=== PATIENT | female | born 1980 | race Caucasian/White ===

== ENCOUNTER 2022-09-07 09:39 | Emergency (ER) | payer MEDICAID ==
[~2022-09-07] VITALS: Wt 88.5 kg
[2022-09-07 10:24] LABS: BASO % 0.4 % (0.0-1.0); EOS % 0.2 % (1.0-4.0); HEMATOCRIT 36.9 % (37.0-47.0); LYMPH # 1.7 10*3/uL (1.3-4.4); LYMPH % 34.4 % (27.0-41.0); MEAN CORPUSCULAR HGB 28.9 pg (27.0-31.0); MEAN CORPUSCULAR HGB CONC 33.6 g/dl (33.0-37.0); MEAN PLATELET VOLUME 11.4 fl (9.6-12.3); MONO # 0.4 10*3/uL (0.1-1.0); MONO % 7.7 % (3.0-9.0); NEUT # 2.8 10*3/uL (2.3-7.9); NEUT % 57.1 % (47.0-73.0); PLATELET COUNT AUTOMATED 242 10*3/uL (130-400); RED BLOOD COUNT 4.29 10*6/uL (4.10-5.10); RED CELL DISTRI WIDTH 12.7 % (0-14.5); WHITE BLOOD COUNT 4.9 10*3/uL (4.8-10.8)
[2022-09-07 10:36] LABS: ACT PARTIAL THROMBO TIME 28.2 SECONDS (20.0-32.1)
[2022-09-07 10:49] LABS: LIPASE 38 U/L (12-53)
[2022-09-07 10:51] LABS: ALKALINE PHOSPHATASE 78 U/L (46-116); BUN 9 mg/dl (9-23); CHLORIDE 105 mmol/L (98-107); SGPT/ALT 22 U/L (10-49); TOTAL PROTEIN 7.3 gm/dL (6.0-8.0)
[2022-09-07 10:53] LABS: BETA-HCG, QUANT < 3.0 mIU/mL (3-10)
[2022-09-07] MEDS ORDERED: Motrin,Rufen800 MG PO (13:11)
== END 2022-09-07 13:46 | disposition home or self-care (01) ==
LOC: ED 09:39
PROVIDERS: Emergency Medicine
DX: R09.1 Pleurisy (principal)

== ENCOUNTER 2022-11-21 10:21 | Emergency (ER) | payer MEDICAID ==
[~2022-11-21] VITALS: Wt 95.3 kg
[~2022-11-21 10:21] MED LIST: Motrin,Rufen800 MG PO
[2022-11-21 11:12] LABS: BILIRUBIN Negative (Negative); BLOOD 1+ (Negative); CLARITY Clear (Clear); COLOR Yellow (Yellow); GLUCOSE Negative (Negative); KETONE Negative (Negative); LEUKO ESTERASE Negative (Negative); NITRITE Negative (Negative); UROBILINOGEN 0.2 E.U./dl (0.0-1.0)
[2022-11-21 11:19] LABS: BACTERIA 1+
[2022-11-21] MEDS ORDERED: CIPRO500 MG PO (11:45)
[2022-11-21] MEDS ORDERED: PHENERGAN25 M3 PO (11:45)
== END 2022-11-21 11:58 | disposition home or self-care (01) ==
LOC: ED 10:21
PROVIDERS: Emergency Medicine
DX: N39.0 Urinary tract infection, site not specified (principal); R11.0 Nausea; M79.7 Fibromyalgia; Z90.89 Acquired absence of other organs; Z90.49 Acquired absence of other specified parts of digestive tract; Z98.51 Tubal ligation status; Z98.890 Other specified postprocedural states

== ENCOUNTER → 2023-09-10 | Outpatient (CLI) | payer MEDICAID ==
[~2023-09-10] MED LIST changes: +CIPRO500 MG PO; +PHENERGAN25 M3 PO
== END | disposition home or self-care (01) ==
LOC: MRI 12:35
PROVIDERS: ATTEND Internal Medicine
DX: R01.1 Cardiac murmur, unspecified (principal); M54.2 Cervicalgia; M43.22 Fusion of spine, cervical region

== ENCOUNTER 2025-03-27 13:35 | Emergency (ER) | payer OTHER ==
[~2025-03-27] VITALS: Wt 86.2 kg
[2025-03-27] MEDS ORDERED: Acetaminophen/Hydrocodone 5 MG/325 MG TABLET PO ONE (13:50)
[2025-03-27] MEDS ORDERED: PREDNISONE50 MG PO (15:26)
== END 2025-03-27 15:38 | disposition home or self-care (01) ==
LOC: ED 13:35
DX: S46.911A Strain of unspecified muscle, fascia and tendon at shoulder and upper arm level, right arm, initial encounter (principal); M79.7 Fibromyalgia; X50.9XXA Other and unspecified overexertion or strenuous movements or postures, initial encounter; Y93.89 Activity, other specified; Y92.89 Other specified places as the place of occurrence of the external cause; Y99.9 Unspecified external cause status

== ENCOUNTER 2025-03-31 09:01 | Emergency (ER) | payer OTHER ==
[~2025-03-31] VITALS: Ht 177.8 cm; Wt 86.2 kg
[~2025-03-31 09:01] MED LIST changes: +PREDNISONE50 MG PO
[2025-03-31] MEDS ORDERED: MELOXICAM15 MG PO (10:23)
== END 2025-03-31 10:26 | disposition home or self-care (01) ==
LOC: ED 09:01
DX: M19.90 Unspecified osteoarthritis, unspecified site (principal); M79.7 Fibromyalgia